=== PATIENT | female | born 1975 | race Caucasian/White ===

== ENCOUNTER 2016-04-15 20:04 | Inpatient (IN) | payer OTHER ==
[~2016-04-15] VITALS: Ht 165.1 cm; Wt 99.9 kg
[~2016-04-15 20:04] MED LIST: ADVIL,NUPRIN,M200 MG PO; ATIVAN1 MG PO; BACTRIM,SEPT1 TABLET PO; CYMBALTA60 MG PO; DICYCLOMINE HCL10 MG PO; EFFEXOR75 MG PO; ENEMA133 ML PR; ERGOCALCIF50000 UNIT PO; FAMOTIDINE20 MG PO; FIORICET 50-301 EACH PO; FLAGYL500 MG PO; HYDROXYZINE HCL50 MG PO; IMITREX100 MG PO; LEXAPRO20 MG PO; LORTAB 5-325 M1 EACH PO; LYRICA50 MG PO; MIRALAX17 GM PO; MIRALAX255 GM PO; NAPROSYN500 MG PO; NICOTINE PATCH1 EAC2 TD; OXCARBAZEPINE300 MG PO; OXYCODONE-APAP1 EACH PO; OXYMORPHONE HCL5 M1 PO; PERCOCET 5/31 TABLET PO; PREDNISONE10 MG PO; PREDNISONE20 MG PO; PRISTIQ100 MG PO; PROMETHAZINE HC25 M1 PO; PROVENTIL2.5 MG/3 M IH; SINGULAIR10 MG PO; STOOL SOFTENER100 MG PO; TIZANIDINE HCL4 M1 PO; TORADOL10 MG PO; TRAMADOL HCL50 MG PO; TRAZODONE HCL50 MG PO; VALIUM10 MG PO; VENLAFAXINE HC150 M1 PO; VENTOLIN HFA18 GM IH; XANAX XR1 MG PO; XANAX1 MG PO; ZOFRAN ODT4 MG PO; ZOFRAN4 MG PO; [UNRECOGNIZED DRUG - OTHER] IV; [UNRECOGNIZED DRUG - OTHER] MC
[2016-04-15 21:53] LABS: HEMATOCRIT 38.6 % (36.0-46.0); MCH 32.4 PG (29.0-34.0); MCHC 34.2 G/DL (30.0-36.0); MCV 94.6 FL (83-99); MEAN PLAT.VOLUME 10.3 uM^3 (9.5-12.4); PLATELET COUNT 329 K/uL (156-360); RBC DIS.WIDTH-CV 13.4 % (11.8-14.6); RBC DIS.WIDTH-SD 44.7 % (39-53); RED BLOOD COUNT 4.08 M/uL (3.80-5.20)
[2016-04-15 22:52] LABS: CHLORIDE 107 mEq/L (99-109); POTASSIUM 4.1 mEq/L (3.7-5.4); SODIUM 138 mEq/L (136-147)
[2016-04-15 22:53] LABS: GLUCOSE 94 mg/dL (70-99)
[2016-04-15 22:55] LABS: ANION GAP 10 MEQ/L (2-14)
[2016-04-15 22:57] LABS: GFR ESTIMATE (CALCULATED) > 59 mL/min/
[2016-04-15 22:58] LABS: UREA NITROGEN (BUN) 10 mg/dL (9-23)
[2016-04-15] MEDS ORDERED: TRAZODONE HCL100 MG PO (23:51)
[2016-04-15] MEDS ORDERED: ADVIL,NUPRIN,M200 MG PO (23:52)
[2016-04-15] MEDS ORDERED: COPAXONE40 MG/1 ML SC (23:53)
[2016-04-15] MEDS ORDERED: MIRTAZAPINE15 MG PO (23:53)
[2016-04-15] MEDS ORDERED: LIDODERM 5% P1 PATCH TD (23:53)
[2016-04-16] VITALS (7 sets, daily range): BP systolic 119–137; BP diastolic 63–83
[2016-04-16 13:02] LABS: URIC ACID 2.8 mg/dL (3.1-9.2)
[2016-04-17 03:42] VITALS: BP 111/73
[2016-04-17 08:00] VITALS: BP 134/66
[2016-04-17 09:55] VITALS: BP 118/65
== END 2016-04-17 14:09 | disposition left against medical advice (07) | DRG 60 ==
LOC: EME 20:04 → EDOF 04-16 00:06 → 2EAST 04-16 01:21
PROVIDERS: Emergency Medicine; Internal Medicine
DX: G35 Multiple sclerosis (principal); M76.01 Gluteal tendinitis, right hip; M16.11 Unilateral primary osteoarthritis, right hip; K58.9 Irritable bowel syndrome, unspecified; M47.896 Other spondylosis, lumbar region; F32.9 Major depressive disorder, single episode, unspecified; F17.210 Nicotine dependence, cigarettes, uncomplicated; G89.29 Other chronic pain; M54.5 Low back pain; K21.9 Gastro-esophageal reflux disease without esophagitis; Z79.891 Long term (current) use of opiate analgesic
CPT/HCPCS: 73630; 80048; 84550; 85027; 85651; 86038; 86200 90; 86430; 99202; 99281; 99285; J1170; J2405; J3360; J7040

== ENCOUNTER 2016-04-24 12:40 | Emergency (ER) | payer OTHER ==
[~2016-04-24] VITALS: Ht 162.6 cm; Wt 97.7 kg
[~2016-04-24 12:40] MED LIST changes: +COPAXONE40 MG/1 ML SC; +LIDODERM 5% P1 PATCH TD; +MIRTAZAPINE15 MG PO; +TRAZODONE HCL100 MG PO
[2016-04-24 16:03] VITALS: BP 121/76
== END 2016-04-24 16:04 | disposition home or self-care (01) ==
LOC: EME 12:40
DX: M54.16 Radiculopathy, lumbar region (principal); M79.661 Pain in right lower leg; G35 Multiple sclerosis; M32.9 Systemic lupus erythematosus, unspecified; K21.9 Gastro-esophageal reflux disease without esophagitis; F17.200 Nicotine dependence, unspecified, uncomplicated
CPT/HCPCS: 93971; 99281; 99284; J1100

== ENCOUNTER 2016-05-21 15:19 | Inpatient (IN) | payer OTHER ==
[~2016-05-21] VITALS: Ht 165.1 cm; Wt 95.5 kg
[2016-05-21 16:56] LABS: EOSINOPHIL (%) 1.6 % (0-5); EOSINOPHIL COUNT 0.1 K/uL (0-0.3); HEMATOCRIT 37.2 % (36.0-46.0); IMMATURE GRANULOCYTE (%) 0.2 % (0.0-0.7); IMMATURE GRANULOCYTE COUNT 0.1 K/uL; LYMPHOCYTE COUNT 2.4 K/uL (1.0-2.8); MCH 32.2 PG (29.0-34.0); MCHC 34.4 G/DL (30.0-36.0); MCV 93.7 FL (83-99); MEAN PLAT.VOLUME 9.9 uM^3 (9.5-12.4); MONOCYTE (%) 7.4 % (3-12); MONOCYTE COUNT 0.5 K/uL (0-0.8); NEUTROPHIL (%) 51.1 % (45-76); NEUTROPHIL COUNT 3.2 K/uL (1.8-6.4); PLATELET COUNT 268 K/uL (156-360); RBC DIS.WIDTH-CV 12.8 % (11.8-14.6); RBC DIS.WIDTH-SD 42.5 % (39-53); RED BLOOD COUNT 3.97 M/uL (3.80-5.20); WHITE BLOOD COUNT 6.2 K/uL (4.1-10.2)
[2016-05-21 17:04] LABS: CHLORIDE 110 mEq/L (99-109); POTASSIUM 3.6 mEq/L (3.7-5.4); SODIUM 142 mEq/L (136-147)
[2016-05-21 17:06] LABS: GLUCOSE 58 mg/dL (70-99)
[2016-05-21 17:07] LABS: ANION GAP 8 MEQ/L (2-14)
[2016-05-21 17:08] LABS: PROTHROMBIN TIME 10.2 (9.2-11.2); PTT 30.1 (25-32)
[2016-05-21 17:10] LABS: GFR ESTIMATE (CALCULATED) > 59 mL/min/
[2016-05-21 17:11] LABS: UREA NITROGEN (BUN) 9 mg/dL (9-23)
[2016-05-21 17:18] LABS: TROP-I INTERPRETATION NEGATIVE; TROPONIN-I < 0.01 ng/mL (0.0-0.30)
[2016-05-21] MEDS ORDERED: CLARITIN10 M3 PO (18:13)
[2016-05-21] MEDS ORDERED: AZITHROMYCIN250 MG PO (18:14)
[2016-05-21] MEDS ORDERED: CYMBALTA60 MG PO (18:15)
[2016-05-21] MEDS ORDERED: ATARAX,VISTARIL50 MG PO (18:15)
[2016-05-21] MEDS ORDERED: FLONASE ALLERG9.9 ML BOTH NARES (18:15)
[2016-05-21 20:50] VITALS: BP 126/62
[2016-05-22 00:03] VITALS: BP 111/52
[2016-05-22 03:46] VITALS: BP 139/77
[2016-05-22 07:00] VITALS: BP 124/69
[2016-05-22 08:07] LABS: TROP-I INTERPRETATION NEGATIVE; TROPONIN-I < 0.01 ng/mL (0.0-0.30)
[2016-05-22 11:08] VITALS: BP 123/74
[2016-05-22 15:32] VITALS: BP 107/57
[2016-05-22 19:18] VITALS: BP 114/56
[2016-05-23] VITALS (7 sets, daily range): BP systolic 118–143; BP diastolic 60–78
[2016-05-24 03:48] VITALS: BP 122/94
[2016-05-24 07:30] VITALS: BP 124/73
[2016-05-24] MEDS ORDERED: CARBAMAZEPINE200 MG PO (10:45)
[2016-05-24] MEDS ORDERED: AMITRIPTYLINE H50 MG PO (10:45)
== END 2016-05-24 11:31 | disposition home or self-care (01) | DRG 60 ==
LOC: EME 15:19 → EDOF 19:20 → 2EAST 19:20
PROVIDERS: Emergency Medicine; Internal Medicine
DX: G35 Multiple sclerosis (principal); K58.9 Irritable bowel syndrome, unspecified; F32.9 Major depressive disorder, single episode, unspecified; M47.816 Spondylosis without myelopathy or radiculopathy, lumbar region; F17.210 Nicotine dependence, cigarettes, uncomplicated; E66.9 Obesity, unspecified; Z68.35 Body mass index [BMI] 35.0-35.9, adult; J01.10 Acute frontal sinusitis, unspecified; J01.00 Acute maxillary sinusitis, unspecified; G89.29 Other chronic pain; G43.909 Migraine, unspecified, not intractable, without status migrainosus
CPT/HCPCS: 70553; 71010; 72156; 80048; 84484; 85025; 85610; 85730; 93005; 94640; 94640 76; 99202; 99281; 99285; J1170; J1650; J2930; J7030; J7050; Q0177

== ENCOUNTER 2016-08-10 19:38 | Emergency (ER) | payer OTHER ==
[~2016-08-10] VITALS: Ht 162.6 cm; Wt 97.0 kg
[~2016-08-10 19:38] MED LIST changes: +AMITRIPTYLINE H50 MG PO; +ATARAX,VISTARIL50 MG PO; +AZITHROMYCIN250 MG PO; +CARBAMAZEPINE200 MG PO; +CLARITIN10 M3 PO; +FLONASE ALLERG9.9 ML BOTH NARES
[2016-08-10 20:33] LABS: HEMATOCRIT 37.5 % (36.0-46.0); MCH 32.6 PG (29.0-34.0); MCHC 34.1 G/DL (30.0-36.0); MCV 95.4 FL (83-99); PLATELET COUNT 260 K/uL (156-360); RBC DIS.WIDTH-CV 12.9 % (11.8-14.6); RBC DIS.WIDTH-SD 45.5 % (39-53); RED BLOOD COUNT 3.93 M/uL (3.80-5.20); WHITE BLOOD COUNT 7.2 K/uL (4.1-10.2)
[2016-08-10 20:43] LABS: CHLORIDE 108 mEq/L (99-109); POTASSIUM 4.3 mEq/L (3.7-5.4); SODIUM 141 mEq/L (136-147)
[2016-08-10 20:45] LABS: GLUCOSE 94 mg/dL (70-99)
[2016-08-10 20:47] LABS: ANION GAP 9 MEQ/L (2-14); TOTAL BILIRUBIN 0.2 mg/dL (0.0-1.0)
[2016-08-10 20:49] LABS: ALKALINE PHOSPHATASE 56 IU/L (3-129); GFR ESTIMATE (CALCULATED) > 59 mL/min/
[2016-08-10 20:50] LABS: UREA NITROGEN (BUN) 12 mg/dL (9-23)
[2016-08-10 20:58] LABS: QUANTITATIVE HCG < 4.0 MIU/ML
[2016-08-10] MEDS ORDERED: CIPRO500 MG PO (23:49)
[2016-08-10] MEDS ORDERED: ZOFRAN4 MG PO (23:49)
[2016-08-10 23:52] LABS: ADD MIUA? YES; BILIRUBIN NEGATIVE; BLOOD NEGATIVE; COLOR YELLOW ((YELLOW)); GLUCOSE (STRIP) NEGATIVE; KETONES 5; LEUKOCYTES NEGATIVE; NITRITE NEGATIVE; PROTEIN (STRIP) 30; SPECIFIC GRAVITY 1.024 (1.000-1.030); UROBILINOGEN 0.2 MG/DL (0.2-1.0)
[2016-08-11 00:08] LABS: BACTERIA NONE SEEN /HPF; EPITHELIAL CELLS 1+ /HPF; MUCUS 3+ /LPF; UCUL ADDED? NO; WHITE BLOOD CELLS 0-5 /HPF (0-5)
[2016-08-11 00:13] VITALS: BP 137/64
== END 2016-08-11 00:16 | disposition home or self-care (01) ==
LOC: EME 19:38
DX: R11.2 Nausea with vomiting, unspecified (principal); F17.200 Nicotine dependence, unspecified, uncomplicated; E86.0 Dehydration; R30.0 Dysuria; J45.909 Unspecified asthma, uncomplicated; F32.9 Major depressive disorder, single episode, unspecified; G43.909 Migraine, unspecified, not intractable, without status migrainosus; K21.9 Gastro-esophageal reflux disease without esophagitis; G35 Multiple sclerosis; M32.9 Systemic lupus erythematosus, unspecified; M79.7 Fibromyalgia; R19.7 Diarrhea, unspecified
CPT/HCPCS: 74176; 80053; 81003; 84702; 85027; 87086; 99281; 99285; J1885; J2270; J2405

== ENCOUNTER 2017-05-19 11:12 | Emergency (ER) | payer OTHER ==
[~2017-05-19] VITALS: Ht 162.6 cm; Wt 94.9 kg
[~2017-05-19 11:12] MED LIST changes: +CIPRO500 MG PO
[2017-05-19 12:08] LABS: HEMATOCRIT 37.7 % (36.0-46.0); HEMOGLOBIN 12.8 G/DL (11.9-15.5); MCV 97.2 FL (83-99); RBC DIS.WIDTH-CV 12.8 % (11.8-14.6); RBC DIS.WIDTH-SD 45.6 % (39-53); RED BLOOD COUNT 3.88 M/uL (3.80-5.20); WHITE BLOOD COUNT 9.4 K/uL (4.1-10.2)
[2017-05-19 12:19] LABS: ALBUMIN 3.9 g/dL (3.2-4.8); CHLORIDE 107 mEq/L (99-109); POTASSIUM 4.7 mEq/L (3.7-5.4); SODIUM 139 mEq/L (136-147)
[2017-05-19 12:22] LABS: GLUCOSE 90 mg/dL (70-99)
[2017-05-19 12:24] LABS: TOTAL BILIRUBIN 0.3 mg/dL (0.0-1.0)
[2017-05-19 12:25] LABS: ALKALINE PHOSPHATASE 65 IU/L (3-129); CREATININE 0.7 mg/dL (0.6-1.3); GFR ESTIMATE (CALCULATED) > 59 mL/min/
[2017-05-19 12:26] LABS: UREA NITROGEN (BUN) 8 mg/dL (9-23)
[2017-05-19 12:27] LABS: AST (GOT) 14 IU/L (2-34)
[2017-05-19 12:28] LABS: ALT (GPT) 9 IU/L (3-49)
[2017-05-19 12:36] LABS: QUANTITATIVE HCG < 4.0 MIU/ML
[2017-05-19 13:01] LABS: PLAT.SUFFICIENCY ADEQUATE; PLATELET COUNT 276 K/uL (156-360)
[2017-05-19 13:06] LABS: SOURCE URINE
[2017-05-19 13:12] LABS: APPEARANCE CLEAR ((CLEAR)); BILIRUBIN NEGATIVE; BLOOD SMALL; COLOR YELLOW ((YELLOW)); GLUCOSE (STRIP) NEGATIVE; KETONES NEGATIVE; LEUKOCYTES NEGATIVE; NITRITE NEGATIVE; PROTEIN (STRIP) NEGATIVE; SPECIFIC GRAVITY 1.012 (1.000-1.030); UROBILINOGEN 0.2 MG/DL (0.2-1.0)
[2017-05-19 13:15] LABS: BACTERIA NONE SEEN /HPF; EPITHELIAL CELLS RARE /HPF; MUCUS TRACE /LPF; RED BLOOD CELLS 0-5 /HPF (0-5); UCUL ADDED? NO; WHITE BLOOD CELLS 0-5 /HPF (0-5)
[2017-05-19] MEDS ORDERED: AUGMENTIN875 MG PO (14:02)
[2017-05-19 14:18] VITALS: BP 123/78
[2017-05-21 11:30] LABS: CHLAMYDIA TRACHOMATIS NEGATIVE; NEISSERIA GONORRHOEAE NEGATIVE
== END 2017-05-19 14:18 | disposition home or self-care (01) ==
LOC: EME 11:12
PROVIDERS: Nurse Practitioner Family
PROC: 0U9L0ZZ Drainage of Vestibular Gland, Open Approach (ICD-10-PCS; principal; 2017-05-19)
DX: N75.1 Abscess of Bartholin's gland (principal); G35 Multiple sclerosis; M79.7 Fibromyalgia; M32.9 Systemic lupus erythematosus, unspecified; J45.909 Unspecified asthma, uncomplicated; K21.9 Gastro-esophageal reflux disease without esophagitis; F41.9 Anxiety disorder, unspecified; F32.9 Major depressive disorder, single episode, unspecified; F17.200 Nicotine dependence, unspecified, uncomplicated; Z87.442 Personal history of urinary calculi; Z86.73 Personal history of transient ischemic attack (TIA), and cerebral infarction without residual deficits; Z90.49 Acquired absence of other specified parts of digestive tract; Z88.8 Allergy status to other drugs, medicaments and biological substances
CPT/HCPCS: 80053; 81003; 84702; 85027; 87491; 87591; 99281; 99284

== ENCOUNTER 2017-06-03 20:01 | Observation (INO) | payer OTHER ==
[~2017-06-03] VITALS: Ht 162.6 cm; Wt 93.2 kg
[~2017-06-03 20:01] MED LIST changes: +AUGMENTIN875 MG PO
[2017-06-03 20:53] LABS: HEMATOCRIT 36.6 % (36.0-46.0); HEMOGLOBIN 12.4 G/DL (11.9-15.5); MCH 33.1 PG (29.0-34.0); MCHC 33.9 G/DL (30.0-36.0); MCV 97.6 FL (83-99); RBC DIS.WIDTH-CV 12.5 % (11.8-14.6); RED BLOOD COUNT 3.75 M/uL (3.80-5.20); WHITE BLOOD COUNT 6.4 K/uL (4.1-10.2)
[2017-06-03 21:07] LABS: CHLORIDE 108 MEQ/L (99-109); POTASSIUM 3.9 MEQ/L (3.7-5.4); SODIUM 139 MEQ/L (136-147)
[2017-06-03 21:13] LABS: CREATININE 0.6 MG/DL (0.6-1.3); GFR ESTIMATE (CALCULATED) > 59 mL/min/; GLUCOSE 94 mg/dL (70-99); UREA NITROGEN (BUN) 10 mg/dL (9-23)
[2017-06-03 21:33] LABS: PLAT.SUFFICIENCY ADEQUATE; PLATELET COUNT 263 K/uL (156-360)
[2017-06-03] MEDS ORDERED: LITHIUM CARBON300 MG PO (22:34)
[2017-06-03] MEDS ORDERED: TRAZODONE HCL50 MG PO (22:35)
[2017-06-03] MEDS ORDERED: HYDROMORPHONE ER8 MG PO (22:35)
[2017-06-03 22:38] LABS: THYROTROPIN (TSH) 2.6 MIU/L (0.4-5.5)
[2017-06-04 00:17] LABS: APPEARANCE SL.HAZY ((CLEAR)); BILIRUBIN NEGATIVE; BLOOD NEGATIVE; COLOR AMBER ((YELLOW)); GLUCOSE (STRIP) NEGATIVE; KETONES 5; LEUKOCYTES NEGATIVE; NITRITE NEGATIVE; PROTEIN (STRIP) NEGATIVE; SPECIFIC GRAVITY 1.029 (1.000-1.030); UROBILINOGEN 0.2 MG/DL (0.2-1.0)
[2017-06-04 00:37] LABS: BACTERIA 1+ /HPF; EPITHELIAL CELLS 3+ /HPF; MUCUS 3+ /LPF; RED BLOOD CELLS 0-5 /HPF (0-5); WHITE BLOOD CELLS NONE SEEN /HPF (0-5)
[2017-06-04 02:29] VITALS: BP 107/58
[2017-06-04 07:40] VITALS: BP 113/58
[2017-06-04 12:42] VITALS: BP 117/60
[2017-06-04 16:20] VITALS: BP 112/54
[2017-06-04 20:23] VITALS: BP 116/56
[2017-06-04 23:19] VITALS: BP 103/53
[2017-06-05 03:30] VITALS: BP 103/49
[2017-06-05 07:11] VITALS: BP 101/52
[2017-06-05] MEDS ORDERED: BUPROPION HCL100 M1 PO (14:46)
== END 2017-06-05 16:01 | disposition home or self-care (01) ==
LOC: EME 20:01 → 2EASTP 23:50 → EDOF 23:50 → 2EASTP 23:50 → ENRESERV 06-04 00:27 → 2EASTP 06-04 02:21 → ENRESERV 06-04 03:13 → CANRESERV 06-04 03:13 → 2EASTP 06-04 15:02
PROVIDERS: Emergency Medicine
DX: G35 Multiple sclerosis (principal); F41.8 Other specified anxiety disorders; F33.0 Major depressive disorder, recurrent, mild; G43.109 Migraine with aura, not intractable, without status migrainosus; M43.06 Spondylolysis, lumbar region; K58.9 Irritable bowel syndrome, unspecified; F17.210 Nicotine dependence, cigarettes, uncomplicated; F45.0 Somatization disorder; E66.9 Obesity, unspecified; Z68.35 Body mass index [BMI] 35.0-35.9, adult; Z90.49 Acquired absence of other specified parts of digestive tract; Z80.0 Family history of malignant neoplasm of digestive organs; Z82.61 Family history of arthritis; Z88.8 Allergy status to other drugs, medicaments and biological substances
CPT/HCPCS: 70450; 70553; 71046; 80048; 80178; 81003; 84439; 84443; 85027; 93005; 99202; 99281; 99285; G0378; J2060; J2930; J7040